=== PATIENT | male | born 1940 | race Caucasian/White ===

== ENCOUNTER → 2016-06-14 | Outpatient (CLI) | payer MEDICARE, OTHER ==
[~2016-06-14] VITALS: Ht 167.6 cm; Wt 88.5 kg
[~2016-06-14] MED LIST: ASPI81TA85 PO; BISO5TAB5 PO; CLAR10CA3 PO; COUM2.5T11 PO; GLUC1CAP10 PO; GLUCPOW24 PO; LIDOCAINE 2% INJ 100 MG/5 ML SDV (FOR ANES.) As Ordered ONE; MULTCAP PO; NS 1,000 ML IV SCH; PERC5TAB6 PO; PROPOFOL 200 MG/20 ML VIAL As Ordered ONE; SIMV10TA2 PO; TEMA15CA2 PO; TRAM50TA2 PO; TYLE325T5 PO; VITA100037 PO; VITATAB11 PO; XALA0.002 OU
--- NOTE | 2016-06-14 11:50 | ROOR ---
Patient Name: León Soares Procedure Date: 06/14/2016 11:34 AM Date of : 1940 Age: 75 Room: [facility] Gender: Male Note Status: Finalized Procedure: Upper GI endoscopy + Biopsies Indications: Heartburn, Follow-up of Shipley's esophagus, Surveillance for malignancy due to personal history of Shipley's esophagus Providers: Chester Colon MD Referring MD: KELI HEIN DO Requesting Provider: Medicines: Monitored Anesthesia Care Complications: No immediate complications. Procedure: Pre-Anesthesia Assessment: - The heart rate, respiratory rate, oxygen saturations, blood pressure, adequacy of pulmonary ventilation, and response to care were monitored throughout the procedure. The Endoscope was introduced through the mouth, and advanced to the second part of duodenum. The upper GI endoscopy was accomplished without difficulty. The patient tolerated the procedure well. Findings: The Z-line was irregular and was found 45 cm from the incisors. Multiple biopsies were obtained with cold forceps for evaluation to rule out Shipley's Esophagus randomly at the gastroesophageal junction. No other significant abnormalities were identified in a careful examination of the stomach. The exam of the duodenum was otherwise normal. Impression: - Z-line irregular, 45 cm from the incisors. - Multiple biopsies were obtained at the gastroesophageal junction. - The examination was otherwise normal. Recommendation: - Patient has a contact number available for emergencies. The signs and symptoms of potential delayed complications were discussed with the patient. Return to normal activities tomorrow. Written discharge instructions were provided to the patient. - High fiber diet. - Discharge patient to home. - Follow an antireflux regimen. - Continue present medications. - Await pathology results. - Check Portal Online for Path Results.([email or web address]) - Telephone GI clinic for pathology results in 1 week. - Return to referring physician. - The findings and recommendations were discussed with the patient's family. Chester Colon MD Chester Colon MD 06/14/2016 11:50:14 AM This report has been signed electronically. Number of Addenda: 0 Note Initiated On: 06/14/2016 11:34 AM Estimated Blood Loss: Estimated blood loss: none.
--- NOTE | 2016-06-14 12:04 | ROOR ---
Patient Name: León Soares Procedure Date: 06/14/2016 11:35 AM Date of : 1940 Age: 75 Room: [facility] Gender: Male Note Status: Finalized Procedure: Colonoscopy to Cecum Indications: Follow-up of diverticulitis Providers: Chester Colon MD Referring MD: KELI HEIN DO Requesting Provider: Medicines: Monitored Anesthesia Care Complications: No immediate complications. Procedure: Pre-Anesthesia Assessment: - The heart rate, respiratory rate, oxygen saturations, blood pressure, adequacy of pulmonary ventilation, and response to care were monitored throughout the procedure. The Colonoscope was introduced through the anus and advanced to the cecum, identified by appendiceal orifice and ileocecal valve. The colonoscopy was performed without difficulty. The patient tolerated the procedure well. The quality of the bowel preparation was good. Findings: The perianal and digital rectal examinations were normal. Non-bleeding internal hemorrhoids were found during retroflexion. The hemorrhoids were small and Grade I (internal hemorrhoids that do not prolapse). Multiple small and large-mouthed diverticula were found in the recto-sigmoid colon, sigmoid colon and descending colon. The exam was otherwise without abnormality on direct and retroflexion views. Impression: - Non-bleeding internal hemorrhoids. - Diverticulosis in the recto-sigmoid colon, in the sigmoid colon and in the descending colon. - The examination was otherwise normal on direct and retroflexion views. - No specimens collected. - The exam was otherwise normal to the cecum. Recommendation: - Patient has a contact number available for emergencies. The signs and symptoms of potential delayed complications were discussed with the patient. Return to normal activities tomorrow. Written discharge instructions were provided to the patient. - High fiber diet. - Discharge patient to home. - Continue present medications. - Return to referring physician. - The findings and recommendations were discussed with the patient's family. Chester Colon MD Chester Colon MD 06/14/2016 12:03:48 PM This report has been signed electronically. Number of Addenda: 0 Note Initiated On: 06/14/2016 11:35 AM Estimated Blood Loss: Estimated blood loss: none.
[2016-06-14 12:30] VITALS: BP 109/70
== END | disposition home or self-care (01) ==
LOC: M OPP 10:15
PROVIDERS: ATTEND Internal Medicine Gastroenterology
DX: K57.32 Diverticulitis of large intestine without perforation or abscess without bleeding (principal); K64.0 First degree hemorrhoids; K57.30 Diverticulosis of large intestine without perforation or abscess without bleeding; R12 Heartburn; K22.70 Barrett's esophagus without dysplasia; K22.8 Other specified diseases of esophagus; I10 Essential (primary) hypertension; E78.5 Hyperlipidemia, unspecified; M19.90 Unspecified osteoarthritis, unspecified site; R51 Headache; G47.30 Sleep apnea, unspecified; R06.83 Snoring; Z85.46 Personal history of malignant neoplasm of prostate; Z79.82 Long term (current) use of aspirin; Z79.899 Other long term (current) drug therapy
CPT/HCPCS: 43239; 88305; 99156; 99157; G0105

== ENCOUNTER → 2017-10-09 | Outpatient (REF) | payer MEDICARE, OTHER | LOC: M LAB REF 15:32 | DX: H10.11 Acute atopic conjunctivitis, right eye (principal) | CPT/HCPCS: 87186 ==

== ENCOUNTER → 2018-06-10 | Outpatient (CLI) | payer MEDICARE, OTHER ==
[~2018-06-10] MED LIST changes: -COUM2.5T11 PO; +COUM2.5T17 PO; -LIDOCAINE 2% INJ 100 MG/5 ML SDV (FOR ANES.) As Ordered ONE; -NS 1,000 ML IV SCH; +PERC5TAB12 PO; -PERC5TAB6 PO; -PROPOFOL 200 MG/20 ML VIAL As Ordered ONE; -VITA100037 PO; +VITA100067 PO; -XALA0.002 OU; +XALA0.007 OU
[2018-06-10 13:54] LABS: BLOOD UREA NITROGEN 12 MG/DL (7-18); CREATININE FOR GFR 0.86 MG/DL (0.70-1.30); GLOMERULAR FILTRATION RATE > 60.0 (>42)
== END ==
LOC: M SMT 11:05
PROVIDERS: ATTEND Nurse Practitioner Adult Health
DX: R05 Cough (principal)

== ENCOUNTER → 2018-06-28 | Outpatient (CLI) | payer MEDICARE, OTHER ==
[~2018-06-28] MED LIST changes: +ISOVUE-370 76% 100ML VIAL (Q9967) As Ordered ONE
--- NOTE | 2018-06-28 15:09 | REP ---
REASON: Cough. The only prior for comparison is 05/29/2006 which has been reviewed. CONTRAST: 100 mL Isovue 370. Mediastinum and pulmonary juliocesar are essentially unchanged. There is no mass or adenopathy. There are no pleural or pericardial effusions. The imaged upper abdomen is essentially unchanged. Tiny hepatic cysts versus focal fatty deposits are noted. The imaged osseous structures are within normal limits for the patient's age. Evaluation of the lung plaza show no new abnormal nodules, masses, or opacities. IMPRESSION: Stable exam with no acute findings as described above. Electronically Signed by Brandin Ramsey DO 06/28/2018 03:21 P
== END ==
LOC: M RAD 10:19
PROVIDERS: ATTEND Nurse Practitioner Adult Health
DX: R05 Cough (principal)
CPT/HCPCS: 71260; Q9967

== ENCOUNTER → 2018-07-11 | Outpatient (CLI) | payer MEDICARE, OTHER ==
[~2018-07-11] MED LIST changes: -ISOVUE-370 76% 100ML VIAL (Q9967) As Ordered ONE; +METHACHOLINE KIT (J7674) INH ONE
--- NOTE | 2018-07-11 15:36 | PFTRPT ---
Height: 65.00 Inches Weight: 193.00 Lbs BSA: 1.95 Diagnosis: R05 DATE OF PROCEDURE: 07/11/2018 ORDERED BY: ROSRAIO Colbert INTERPRETATION: Study of excellent technical quality. Under protocol, methacholine was administered. At a dose of 10 mg or 63.875 CDUs, a 20% decline in the FEV1 was noted. PC of 9.03 is in the indeterminate range. IMPRESSION: Nondiagnostic study. Flow rates did return to baseline post bronchodilator administration. Please correlate clinically. MTDD
== END ==
LOC: M CARPUL 13:26
PROVIDERS: ATTEND Nurse Practitioner Adult Health
DX: R05 Cough (principal)
CPT/HCPCS: 94070; 95070; J7674

== ENCOUNTER 2018-11-20 11:01 | Day surgery (SDC) | payer MEDICARE, OTHER ==
[~2018-11-20] VITALS: Ht 162.6 cm; Wt 88.5 kg
[~2018-11-20 11:01] MED LIST changes: +B-COTAB25 PO; -BISO5TAB5 PO; +BISO5TAB9 PO; +CHOL100029 PO; -METHACHOLINE KIT (J7674) INH ONE; +NS 1,000 ML IV ONE; +SING5CHW23 PO
[2018-11-20] MEDS ORDERED: PROPOFOL 500 MG/50 ML VIAL As Ordered ONE (11:52)
[2018-11-20] MEDS ORDERED: LIDOCAINE 2% INJ 100 MG/5 ML SDV (FOR ANES.) As Ordered ONE (11:56)
[2018-11-20] MEDS ORDERED: fentaNYL 100 MCG/2 ML INJECTION (J3010) As Ordered ONE (12:38)
--- NOTE | 2018-11-20 13:26 | ROOR ---
Patient Name: León Soares Procedure Date: 11/20/2018 1:07 PM Date of : 1940 Age: 78 Room: [facility] Gender: Male Note Status: Finalized Procedure: Upper Endoscopy + Biopsies Indications: Iron deficiency anemia, Heartburn Providers: Chester Colon MD Referring MD: KELI HEIN DO Requesting Provider: Medicines: Monitored Anesthesia Care Complications: No immediate complications. Procedure: Pre-Anesthesia Assessment: - The heart rate, respiratory rate, oxygen saturations, blood pressure, adequacy of pulmonary ventilation, and response to care were monitored throughout the procedure. The Endoscope was introduced through the mouth, and advanced to the second part of duodenum. The upper GI endoscopy was accomplished without difficulty. The patient tolerated the procedure well. Findings: The Z-line was irregular and was found 40 cm from the incisors. Multiple biopsies were obtained with cold forceps for evaluation to rule out Shipley's Esophagus randomly at the gastroesophageal junction. A small hiatal hernia was present. No other significant abnormalities were identified in a careful examination of the stomach. Biopsies were taken with a cold forceps in the gastric antrum for Helicobacter pylori testing. The exam of the duodenum was otherwise normal. Biopsies for histology were taken with a cold forceps in the first portion of the duodenum for evaluation of celiac disease. The exam was otherwise without abnormality. Impression: - Z-line irregular, 40 cm from the incisors. - Small hiatal hernia. - The examination was otherwise normal. - Multiple biopsies were obtained at the gastroesophageal junction. - Biopsies were taken with a cold forceps for Helicobacter pylori testing. - Biopsies were taken with a cold forceps for evaluation of celiac disease. - The examination was otherwise normal. Recommendation: - Patient has a contact number available for emergencies. The signs and symptoms of potential delayed complications were discussed with the patient. Return to normal activities tomorrow. Written discharge instructions were provided to the patient. - High fiber diet. - Discharge patient to home. - Continue present medications. - Await pathology results. - Telephone GI clinic for pathology results in 1 week. - Return to referring physician. - The findings and recommendations were discussed with the patient's family. Chester Colon MD Chester Colon MD 11/20/2018 1:25:42 PM Electronically signed by Chester Colon MD Number of Addenda: 0 Note Initiated On: 11/20/2018 1:07 PM Estimated Blood Loss: Estimated blood loss: none.
--- NOTE | 2018-11-20 13:42 | ROOR ---
Patient Name: León Soares Procedure Date: 11/20/2018 1:08 PM Date of : 1940 Age: 78 Room: [facility] Gender: Male Note Status: Finalized Procedure: Total Colonoscopy to Cecum Indications: Last colonoscopy: 2016, Iron deficiency anemia Providers: Chester Colon MD Referring MD: KELI HEIN DO Requesting Provider: Medicines: Monitored Anesthesia Care Complications: No immediate complications. Procedure: Pre-Anesthesia Assessment: - The heart rate, respiratory rate, oxygen saturations, blood pressure, adequacy of pulmonary ventilation, and response to care were monitored throughout the procedure. The Colonoscope was introduced through the anus and advanced to the cecum, identified by appendiceal orifice and ileocecal valve. The colonoscopy was performed without difficulty. The patient tolerated the procedure well. The quality of the bowel preparation was excellent. Findings: The perianal and digital rectal examinations were normal. Non-bleeding internal hemorrhoids were found during retroflexion. The hemorrhoids were small and Grade I (internal hemorrhoids that do not prolapse). Multiple small and large-mouthed diverticula were found in the recto-sigmoid colon, sigmoid colon and descending colon. The exam was otherwise without abnormality on direct and retroflexion views. Impression: - Non-bleeding internal hemorrhoids. - Diverticulosis in the recto-sigmoid colon, in the sigmoid colon and in the descending colon. - The examination was otherwise normal on direct and retroflexion views. - No specimens collected. - The exam was otherwise normal to the cecum. Recommendation: - Patient has a contact number available for emergencies. The signs and symptoms of potential delayed complications were discussed with the patient. Return to normal activities tomorrow. Written discharge instructions were provided to the patient. - High fiber diet. - Discharge patient to home. - Continue present medications. - Repeat colonoscopy for symptoms only.. - The findings and recommendations were discussed with the patient's family. Chester Colon MD Chester Colon MD 11/20/2018 1:41:48 PM Electronically signed by Chester Colon MD Number of Addenda: 0 Note Initiated On: 11/20/2018 1:08 PM Estimated Blood Loss: Estimated blood loss: none.
[2018-11-20 14:10] VITALS: BP 139/84
== END 2018-11-20 14:18 | disposition home or self-care (01) ==
LOC: M OPP 11:01
PROVIDERS: ATTEND Internal Medicine Gastroenterology
DX: D50.9 Iron deficiency anemia, unspecified (principal); K64.0 First degree hemorrhoids; K57.30 Diverticulosis of large intestine without perforation or abscess without bleeding; R12 Heartburn; K22.8 Other specified diseases of esophagus; K29.70 Gastritis, unspecified, without bleeding; K44.9 Diaphragmatic hernia without obstruction or gangrene; I10 Essential (primary) hypertension; E78.5 Hyperlipidemia, unspecified; Z86.19 Personal history of other infectious and parasitic diseases; M19.90 Unspecified osteoarthritis, unspecified site; G47.30 Sleep apnea, unspecified; Z85.46 Personal history of malignant neoplasm of prostate; Z79.82 Long term (current) use of aspirin; Z79.899 Other long term (current) drug therapy
CPT/HCPCS: 43239; 45378; 88305; J3010

== ENCOUNTER → 2019-01-02 | Outpatient (CLI) | payer MEDICARE, OTHER ==
[~2019-01-02] MED LIST changes: -NS 1,000 ML IV ONE
--- NOTE | 2019-01-06 08:43 | RADONC ---
RADIATION ONCOLOGY CONSULTATION NOTE DATE: 01/02/2019 CHART NUMBER: [id number] DIAGNOSIS: Prostate cancer. STAGE: I, T1c, N0, M0, initial PSA 7.46, [place] score 6 (3-3), now biochemical failure. ECOG PERFORMANCE STATUS: 0. CONSULTATION NOTE: Mr. Soares is a very pleasant 78-year-old white male with the diagnosis of what was originally staged as a stage 1, [id number], moderately differentiated [place] score 6 (3-3) adenocarcinoma of the prostate with initial PSA level of 7.46 who underwent robotic-assisted prostatectomy and is now presenting to us for discussion of postoperative radiation therapy for a slowly rising PSA. HISTORY OF PRESENT ILLNESS: The patient was in his usual state of health until early 2010 when he was found to have an elevated PSA at 7.46. On 07/27/2010 the patient underwent prostatic needle biopsy and pathology revealed a [place] score 6 (3-3) adenocarcinoma of the prostate. He was seen by me on September 27, 2010 and subsequently decided to undergo a prostatectomy. I do not have the patient's operative note or pathology report from his original robotic-assisted prostatectomy in 2010, however we are attempting to obtain that information. In the meantime he has been followed closely by his urologist, Dr. Allan Bartlett MD and has had biochemically undetectable PSA until 2015. His PSA has been slowly rising from 0.05 up until recently when he was found at have 0.35, PSA on 12/06/2018. He is now being referred for consideration of postoperative radiation therapy in an attempt to increase likely of achieving local control and cure. PAST MEDICAL HISTORY: The patient's past medical history is positive for multiple urinary tract infection, also some stress incontinence. He has had some testicular hypofunction noted as well. He has hypertension and a history of some cataracts as well. He had cataract surgery. He also had hernia repair surgery and knee surgery. ALLERGIES: The patient has no known drug allergies. SOCIAL HISTORY: The patient has smoked one pack of cigarettes per day for 10 years. He quit 1968. He does not abuse alcohol. FAMILY HISTORY: The patient's family history is positive for a mother with ovarian cancer and a sister with breast cancer. REVIEW OF SYSTEMS: The patient's review of systems is positive for impotency and some stress incontinence as well as hearing loss. He is wearing hearing aids. It is otherwise noncontributory. He denies nausea, vomiting, fevers, chills, night sweats, diplopia, headaches, anxiety or depression, anorexia, weight loss, visual disturbances, chest pain, urinary or bowel difficulties, bone pain, or neurological problems. PHYSICAL EXAMINATION: The patient is a well-developed, well-nourished male in no acute distress. HEENT exam is normocephalic, atraumatic. Extraocular movements are intact. There is no palpable cervical, supraclavicular, infraclavicular, axillary, or inguinal lymphadenopathy present. Lungs are clear to auscultation and percussion. Heart has a regular rate and rhythm. Abdomen is benign with no hepatosplenomegaly, masses, or tenderness. Rectal examination reveals a normal anal sphincter tone. His prostate bed is smooth with no evidence of nodularity. Skeletal examination reveals no tenderness to pressure or percussion of the bony skeleton. Extremities reveal no clubbing, cyanosis, or edema. Neurologic exam is grossly intact as is the remainder of the physical examination. ASSESSMENT: Clearly the patient is a candidate for external beam radiation therapy and I have so informed him. I have discussed with the patient in detail the potential benefits as well as possible acute and chronic sequelae of external beam radiation therapy. We discussed logistics of treatment planning, simulation and subsequent fractionated daily radiation treatments. I have scheduled the patient for the next available simulation slot and radiation treatments will begin subsequently. Thank you for allowing us to participate in the care of this very pleasant gentleman. If I could be of any further assistance or provide you with any information, please feel free to contact me anytime. cc: MD Allan Bishop MD
== END ==
LOC: M ONCR 08:44
PROVIDERS: ATTEND Radiology Radiation Oncology
DX: C61 Malignant neoplasm of prostate (principal)

== ENCOUNTER 2019-01-15 13:08 | Outpatient (RCR) | payer MEDICARE, OTHER ==
[2019-01-07 14:50] LABS: BASO # 0.1 10^3/uL (0.0-0.2); BASO % 0.6 % (0.0-1.0); EOS # 0.3 10^3/uL (0.0-0.5); EOS % 3.9 % (0.0-3.0); HEMATOCRIT 40.4 % (42.0-52.0); HEMOGLOBIN 13.4 g/dl (13.5-17.5); LYMPH # 2.3 10^3/uL (1.5-5.0); LYMPH % 29.5 % (24.0-44.0); MEAN CORPUSCULAR HEMOGLOBIN 32.7 pg (27.0-33.0); MEAN CORPUSCULAR HGB CONC 33.2 g/dl (32.0-36.5); MEAN CORPUSCULAR VOLUME 98.5 fl (80.0-96.0); MONO # 0.8 10^3/uL (0.0-0.8); MONO % 10.1 % (0.0-5.0); NEUTROPHILS # 4.4 10^3/uL (1.5-8.5); NEUTROPHILS % 55.6 % (36.0-66.0); PLATELET COUNT, AUTOMATED 188 10^3/uL (150-450); WHITE BLOOD COUNT 7.9 10^3/uL (4.0-10.0)
--- NOTE | 2019-01-09 07:17 | RADONC ---
RADIATION ONCOLOGY SIMULATION NOTE: DATE: 01/07/2019 CHART NUMBER: [id number] Mr. Soares was taken to the CT scan for CT simulation of his prostate bed. CT was accomplished without difficulty or discomfort. Radiation treatment planning is underway and radiation treatments will begin subsequently. An immobilization device was created and will be used throughout the course of treatment. It was created without difficulty or discomfort. I was physically present throughout the course of CT simulation.
[~2019-01-15 13:08] MED LIST changes: -SIMV10TA2 PO; +SIMV10TA21 PO
== END 2019-01-18 ==
LOC: M ONCR 13:08
PROVIDERS: ATTEND Radiology Radiation Oncology
DX: C61 Malignant neoplasm of prostate (principal)

== ENCOUNTER → 2019-02-18 | Outpatient (RCR) | payer MEDICARE, OTHER ==
--- NOTE | 2019-01-21 15:27 | RADONC ---
RADIATION ONCOLOGY ON TREATMENT NOTE: DATE OF SERVICE: 01/21/2019 CHART NUMBER: [id number] Mr. Soares is a 78-year-old gentleman who carries the diagnosis of low risk prostate CA. Currently he has received two treatment doses of 360 cGy. He has no problem with the treatment. He has no complaints of urination, however, he is constipated. I discussed diet and other stool softeners for use. The treatment will continue as planned. MTDD
--- NOTE | 2019-01-28 06:56 | RADONC ---
RADIATION ONCOLOGY [facility] DATE: 01/27/2019 CHART NUMBER: [id number] PROGRESS NOTE: Mr. Soares is presently at a dose of 1080 cGy to his prostate bed and is tolerating treatments quite well at this point with no complaints related to his radiation therapy. He is having no urinary or bowel difficulties. No bone pain. REVIEW OF SYSTEMS: The patient's review of systems is noncontributory. Denies nausea, vomiting, fevers, chills, night sweats, diplopia, headaches, anxiety or depression, anorexia, weight loss, visual disturbances, chest pain, urinary or bowel difficulties, bone pain, or neurological problems. PHYSICAL EXAMINATION: The patient's skin is in good condition with no evidence of radiation change present. There is no moist or dry desquamation. The remainder of his physical exam remains unchanged. Mr. Soares is tolerating treatments quite well and radiation will continue as scheduled.
--- NOTE | 2019-02-05 09:22 | RADONC ---
RADIATION ONCOLOGY PROGRESS NOTE DATE: 02/03/2019 CHART NUMBER: [id number] PROGRESS NOTE: Mr. Soares is presently at a dose of 1980 cGy to his prostate bed and is tolerating treatments quite well at this point with no complaints related to his radiation therapy. He is having no significant urinary or bowel difficulties, and no bone pain. REVIEW OF SYSTEMS: The patient's review of systems is noncontributory. Denies nausea, vomiting, fevers, chills, night sweats, diplopia, headaches, anxiety or depression, anorexia, weight loss, visual disturbances, chest pain, urinary or bowel difficulties, bone pain, or neurological problems. PHYSICAL EXAMINATION: The patient's skin is in good condition with no evidence of moist or dry desquamation. The remainder of the physical exam remains unchanged. Mr. Soares is tolerating treatments quite well and radiation will continue as scheduled.
--- NOTE | 2019-02-18 13:18 | RADONC ---
RADIATION ONCOLOGY PROGRESS NOTE DATE OF SERVICE: 02/17/2019 CHART NUMBER: Mr. Soares, with a diagnosis of adenocarcinoma of prostate status post prostatectomy, is currently receiving local regional radiotherapy. His current dose to date is 3420 cGy of an anticipated 6660 cGy. He denies any nausea, vomiting, diarrhea, dysuria, hematuria or blood per rectum. His energy level is satisfactory and he is able to maintain most of his day-to-day activities without any alteration of his lifestyle. Skin irritation is denied. EXAMINATION FINDINGS: The skin within the irradiated volume shows neither erythema nor desquamation. Lymphatics: No palpable peripheral lymphadenopathy is appreciated. Lungs are clear. Remainder of the physical examination is unchanged. IMPRESSION: Tolerating therapy well. PLAN: Treatments to continue.
== END ==
LOC: M ONCR 01-20 13:03
PROVIDERS: ATTEND Radiology Radiation Oncology
DX: C61 Malignant neoplasm of prostate (principal)

== ENCOUNTER 2019-03-14 15:12 | Outpatient (RCR) | payer MEDICARE, OTHER ==
--- NOTE | 2019-02-25 08:59 | RADONC ---
RADIATION ONCOLOGY DATE: 02/24/2019 CHART NUMBER: [id number] Mr. Soares is presently at a dose of 4140 cGy to his prostate bed and is tolerating treatments quite well at this point with no complaints related to his radiation therapy. He is having no urinary or bowel difficulties and no bone pain. The patient's review of systems is noncontributory. Denies nausea, vomiting, fevers, chills, night sweats, diplopia, headaches, anxiety or depression, anorexia, weight loss, visual disturbances, chest pain, urinary or bowel difficulties, bone pain, or neurological problems. PHYSICAL EXAMINATION The patient's skin is in good condition with no evidence of radiation change present. There is no moist or dry desquamation. The remainder of his physical exam remains unchanged. Mr. Soares is tolerating treatments quite well and radiation will continue as scheduled.
--- NOTE | 2019-03-04 10:35 | RADONC ---
RADIATION ONCOLOGY PROGRESS NOTE DATE OF SERVICE: 03/03/2019 CHART NUMBER: [id number]. PROGRESS NOTE: Mr. Soares is presently at a dose of 5040 cGy to his prostate bed and is tolerating his treatments fairly well with no significant difficulties related to his radiation therapy other than some minimal blood in his stools. REVIEW OF SYSTEMS: The patient's review of systems is positive for some blood in the stools but is otherwise noncontributory. He denies nausea, vomiting, fevers, chills, night sweats, diplopia, headaches, anxiety or depression, anorexia, weight loss, visual disturbances, chest pain, urinary or bowel difficulties, bone pain, or neurological problems. PHYSICAL EXAMINATION: The patient's skin is in good condition with no evidence of moist or dry desquamation. The remainder of his physical exam remains unchanged. Mr. Soares is tolerating treatments quite well, and radiation will continue as scheduled.
--- NOTE | 2019-03-11 10:02 | RADONC ---
RADIATION ONCOLOGY PROGRESS NOTE DATE: 03/10/2019 CHART NUMBER: [id number] PROGRESS NOTE: Mr. Soares is presently at a dose of 5940 cGy to his prostate bed and is tolerating treatments quite well at this point with no significant difficulties related to his radiation therapy except for some occasional light rectal bleeding. REVIEW OF SYSTEMS: The patient's review of systems is positive for his rectal bleeding but is otherwise noncontributory. Denies nausea, vomiting, fevers, chills, night sweats, diplopia, headaches, anxiety or depression, anorexia, weight loss, visual disturbances, chest pain, urinary or bowel difficulties, bone pain, or neurological problems. PHYSICAL EXAMINATION: The patient's skin is in excellent condition with no evidence of moist or dry desquamation. The remainder of his physical exam remains unchanged. Mr. Soares is tolerating treatments quite well and radiation will continue as scheduled.
[~2019-03-14 15:12] MED LIST changes: +BISO5TAB14 PO; -BISO5TAB9 PO
--- NOTE | 2019-03-18 14:29 | RADONC ---
RADIATION ONCOLOGY TREATMENT SUMMARY DATE: 03/14/2019 CHART NUMBER: [id number] DIAGNOSIS: Prostate cancer. STAGE: I, T1c, N0, M0, initial PSA 7.46, [place] score 6 (3-3), biochemical failure. ECOG PERFORMANCE STATUS: 0 TREATMENT SUMMARY: Mr. Soares is a very pleasant 78-year-old white male with the original diagnosis of a stage I, [id number], moderately differentiated [place] score 6 (3-3) adenocarcinoma of prostate with an initial PSA level 7.46 who presented to us status post robotic-assisted prostatectomy for consideration of postoperative radiation therapy for a slowly rising PSA level. We treated the patient to his prostate bed for a total dose of 6660 cGy delivered in 37 fractions over 50 elapsed days from 01/20/2019 through 03/14/2019. The patient's prostate bed was treated on a linear accelerator utilizing a 15 MV photon beam via 3-D conformal technique with anterior and posterior left to right lateral plaza. We initially treated a larger area to a dose of 4500 cGy and subsequently coned down to the bed itself for an additional 2160 cGy in order to maintain the small bowel and other structures within their tolerance limits. Mr. Soares tolerated his treatments quite well with no difficulties related to his radiation therapy. The patient is scheduled see me again in 1 month for further followup. He will also continue to be followed by his other physicians as well. Thank you for allowing us to participate in the care of this very pleasant gentleman. If I could be of any further assistance or provide you with any information, please free to contact me at anytime. As always, warm regards. cc: MD Allan Bishop MD
== END 2019-03-21 ==
LOC: M ONCR 15:12
PROVIDERS: ATTEND Radiology Radiation Oncology
DX: C61 Malignant neoplasm of prostate (principal)

== ENCOUNTER → 2019-04-16 | Outpatient (CLI) | payer MEDICARE, OTHER ==
--- NOTE | 2019-04-17 11:17 | RADONC ---
RADIATION ONCOLOGY FOLLOWUP NOTE DATE: 04/16/2019 CHART #: [id number] DIAGNOSIS: Prostate cancer. STAGE: I, T1c,N0,M0, initial PSA 7.46, Rupal score 6 (3-3), with biochemical failure. ECOG PERFORMANCE STATUS: 0. FOLLOWUP NOTE: Mr. Soares is a very pleasant [age]-year-old white male with the diagnosis of what was originally a stage I, [id number] moderately differentiated, Elon score 6 (3-3) adenocarcinoma of the prostate who is presenting to me today for routine followup visit 1 month post completion of external beam radiation therapy. The patient presents today reporting that he is doing quite well with no complaints at this time related to his radiation therapy or disease. He is having no urinary or bowel difficulties and no bone pain. REVIEW OF SYSTEMS: The patient's review of systems is noncontributory. Denies nausea, vomiting, fevers, chills, night sweats, diplopia, headaches, anxiety or depression, anorexia, weight loss, visual disturbances, chest pain, urinary or bowel difficulties, bone pain, or neurological problems. PHYSICAL EXAMINATION: The patient is a well-developed, well-nourished male in no acute distress. HEENT exam is normocephalic, atraumatic. Extraocular movements are intact. There is no palpable cervical, supraclavicular, infraclavicular, axillary, or inguinal lymphadenopathy present. Lungs are clear to auscultation and percussion. Heart has a regular rate and rhythm. Abdomen is benign with no hepatosplenomegaly, masses, or tenderness. Rectal examination reveals a normal anal sphincter tone. His prostate bed is smooth with no evidence of nodularity. Skeletal examination reveals no tenderness to pressure or percussion of the bony skeleton. Extremities reveal no clubbing, cyanosis, or edema. Neurologic exam is grossly intact, as is the remainder of the physical examination. ASSESSMENT: The patient is clinically LIS at this time. He is continuing his close followup and management with his urologist Dr. Allan Bartlett. In light of this, I am discharging him from my followup except on a p.r.n. basis. The patient has my cell phone number and office number and we are available to him at anytime if we could be of any assistance whatsoever. cc: MD Allan Bishop MD
== END ==
LOC: M ONCR 14:41
PROVIDERS: ATTEND Radiology Radiation Oncology
DX: C61 Malignant neoplasm of prostate (principal)

== ENCOUNTER → 2019-05-10 | Outpatient (CLI) | payer MEDICARE, OTHER | LOC: M LABSMTC 10:01 | PROVIDERS: ATTEND Family Medicine | DX: Z20.828 Contact with and (suspected) exposure to other viral communicable diseases (principal) ==

== ENCOUNTER → 2020-03-24 | Outpatient (CLI) | payer MEDICARE, OTHER ==
[~2020-03-24] MED LIST changes: +AMLO2.5T3; +ASPI81TA26 PO; -ASPI81TA85 PO; +ASPI81TA86 PO; +D31000TA2 PO; +MONT10TA10 PO; +SENN18TA PO
== END ==
LOC: M LABSMTC 10:56
PROVIDERS: ATTEND Anesthesiology
DX: Z01.812 Encounter for preprocedural laboratory examination (principal); Z20.822 Contact with and (suspected) exposure to COVID-19

== ENCOUNTER 2020-03-29 07:55 | Day surgery (SDC) | payer MEDICARE, OTHER ==
[~2020-03-29] VITALS: Ht 165.1 cm; Wt 88.8 kg
[~2020-03-29 07:55] MED LIST changes: +NS 1,000 ML IV ONE
[2020-03-29] MEDS ORDERED: propofoL 200 MG/20 ML VIAL As Ordered ONE ×2 (08:14→09:14)
[2020-03-29] MEDS ORDERED: LIDOCAINE 2% 100MG/5ML SDV (FOR ANES.) As Ordered ONE (08:14)
--- NOTE | 2020-03-29 09:30 | ROOR ---
Patient Name: León Soares Procedure Date: 03/29/2020 8:58 AM Date of : 1940 Age: 79 Room: [facility] Gender: Male Note Status: Finalized Procedure: Total Colonoscopy to the Cecum + APC Indications: Rectal bleeding Providers: Chester oClon MD Referring MD: KELI HEIN DO Requesting Provider: Medicines: Monitored Anesthesia Care Complications: No immediate complications. Procedure: Pre-Anesthesia Assessment: - The heart rate, respiratory rate, oxygen saturations, blood pressure, adequacy of pulmonary ventilation, and response to care were monitored throughout the procedure. The Colonoscope was introduced through the anus and advanced to the cecum, identified by appendiceal orifice and ileocecal valve. The colonoscopy was performed without difficulty. The patient tolerated the procedure well. The quality of the bowel preparation was excellent. Findings: The perianal and digital rectal examinations were normal. Non-bleeding internal hemorrhoids were found during retroflexion. The hemorrhoids were small and Grade I (internal hemorrhoids that do not prolapse). The mucosa vascular pattern in the rectum was locally increased. Coagulation for bleeding prevention using argon plasma at 0.8 liters/minute and 30 chou was successful. The exam was otherwise without abnormality on direct and retroflexion views. Impression: - Non-bleeding internal hemorrhoids. - Increased mucosa vascular pattern in the rectum. Treated with argon plasma coagulation (APC). - The examination was otherwise normal on direct and retroflexion views. - No specimens collected. - The exam was otherwise normal to the cecum. Recommendation: - Patient has a contact number available for emergencies. The signs and symptoms of potential delayed complications were discussed with the patient. Return to normal activities tomorrow. Written discharge instructions were provided to the patient. - High fiber diet. - Discharge patient to home. - Continue present medications. - Repeat colonoscopy PRN for retreatment. - Return to referring physician. - The findings and recommendations were discussed with the patient. Procedure Code(s): --- Professional --- 99918, Colonoscopy, flexible; with control of bleeding, any method Diagnosis Code(s): --- Professional --- K64.0, First degree hemorrhoids K62.5, Hemorrhage of anus and rectum CPT copyright 2019 [employer]. All rights reserved. The codes documented in this report are preliminary and upon electroencephalographic technologist review may be revised to meet current compliance requirements. Chester Colon MD Chester Colon MD 03/29/2020 9:30:03 AM Electronically signed by Chester Colon MD Number of Addenda: 0 Note Initiated On: 03/29/2020 8:58 AM Estimated Blood Loss: Estimated blood loss: none.
[2020-03-29 09:55] VITALS: BP 121/84
== END 2020-03-29 10:04 | disposition home or self-care (01) ==
LOC: M OPP 07:55
PROVIDERS: ATTEND Internal Medicine Gastroenterology
DX: K62.5 Hemorrhage of anus and rectum (principal); K64.0 First degree hemorrhoids; I10 Essential (primary) hypertension; E78.5 Hyperlipidemia, unspecified; M19.90 Unspecified osteoarthritis, unspecified site; G47.30 Sleep apnea, unspecified; Z85.46 Personal history of malignant neoplasm of prostate; Z92.3 Personal history of irradiation; Z79.82 Long term (current) use of aspirin; Z79.899 Other long term (current) drug therapy

== ENCOUNTER → 2022-02-28 | Outpatient (REF) | payer MEDICARE, OTHER ==
[~2022-02-28] MED LIST changes: -D31000TA2 PO; -MONT10TA10 PO; +MONT10TA97 PO; -NS 1,000 ML IV ONE; +VITA100093 PO
== END ==
LOC: M LAB REF 11:50
PROVIDERS: ATTEND Internal Medicine Gastroenterology
DX: K62.5 Hemorrhage of anus and rectum (principal); R19.7 Diarrhea, unspecified; R10.0 Acute abdomen

== ENCOUNTER → 2022-04-07 | Outpatient (CLI) | payer MEDICARE, OTHER ==
[~2022-04-07] MED LIST changes: +BIMA01SOL; +DIVA500T94 PO; +IRON65TA2 PO; +MESA1000; +SUCR1TAB56 PO; +TIAZ1CAP4 PO; +VITMTA PO; +XARE15TA
== END ==
LOC: M LABSMTC 10:24
PROVIDERS: ATTEND Anesthesiology
DX: Z01.812 Encounter for preprocedural laboratory examination (principal); Z20.822 Contact with and (suspected) exposure to COVID-19

== ENCOUNTER 2022-04-12 07:48 | Day surgery (SDC) | payer MEDICARE, OTHER ==
[~2022-04-12] VITALS: Ht 167.6 cm; Wt 86.2 kg
[~2022-04-12 07:48] MED LIST changes: +LIDOCAINE 2% 100MG/5ML SDV (FOR ANES.) As Ordered ONE; +NS 1,000 ML IV ONE; +propofoL 200 MG/20 ML VIAL As Ordered ONE
[2022-04-12 09:50] VITALS: BP 142/90
== END 2022-04-12 10:04 | disposition home or self-care (01) ==
LOC: M OPP 07:48
PROVIDERS: ATTEND Internal Medicine Gastroenterology
DX: K57.30 Diverticulosis of large intestine without perforation or abscess without bleeding (principal); K62.5 Hemorrhage of anus and rectum; D50.9 Iron deficiency anemia, unspecified; I10 Essential (primary) hypertension; E78.00 Pure hypercholesterolemia, unspecified; I48.91 Unspecified atrial fibrillation; G47.33 Obstructive sleep apnea (adult) (pediatric); Z87.891 Personal history of nicotine dependence; Z79.02 Long term (current) use of antithrombotics/antiplatelets; Z79.82 Long term (current) use of aspirin; Z79.899 Other long term (current) drug therapy; Z99.89 Dependence on other enabling machines and devices; Z85.46 Personal history of malignant neoplasm of prostate; Z86.73 Personal history of transient ischemic attack (TIA), and cerebral infarction without residual deficits; Z80.41 Family history of malignant neoplasm of ovary; Z80.3 Family history of malignant neoplasm of breast